=== PATIENT | male | born 1940 | race Caucasian/White ===

== ENCOUNTER → 2016-08-19 | Outpatient (CLI) | payer MEDICARE, OTHER | END | disposition home or self-care (01) | LOC: PCVCCLINIC 14:04 | PROVIDERS: ATTEND Internal Medicine Cardiovascular Disease | DX: I42.8 Other cardiomyopathies (principal) | CPT/HCPCS: 93284 ==

== ENCOUNTER → 2017-07-15 | Outpatient (CLI) | payer MEDICARE, OTHER | END | disposition home or self-care (01) | LOC: PCVCCLINIC 14:02 | PROVIDERS: ATTEND Internal Medicine Cardiovascular Disease | DX: I42.8 Other cardiomyopathies (principal); I51.7 Cardiomegaly; J44.9 Chronic obstructive pulmonary disease, unspecified; Z95.810 Presence of automatic (implantable) cardiac defibrillator; Z87.891 Personal history of nicotine dependence; Z79.899 Other long term (current) drug therapy; Z79.82 Long term (current) use of aspirin | CPT/HCPCS: 80061; 93005; G0463 ==

== ENCOUNTER → 2018-01-18 | Outpatient (CLI) | payer MEDICARE, OTHER | END | disposition home or self-care (01) | LOC: PCVCCLINIC 13:50 | DX: I10 Essential (primary) hypertension (principal); I42.8 Other cardiomyopathies; Z95.0 Presence of cardiac pacemaker; Z88.0 Allergy status to penicillin; Z88.8 Allergy status to other drugs, medicaments and biological substances; Z79.82 Long term (current) use of aspirin; Z79.899 Other long term (current) drug therapy | CPT/HCPCS: 80061; 93281; G0463 ==

== ENCOUNTER → 2018-04-28 | Outpatient (CLI) | payer MEDICARE, OTHER ==
--- NOTE | 2018-04-28 14:46 | PCVCIMAG ---
APPROVED REPORT Study performed: 04/28/2018 09:33:10 EXAM: Comprehensive 2D, Doppler, and color-flow Echocardiogram Patient Location: Echo lab Room #: 2Status: routine BSA: 2.37 Other Information Study Quality: Excellent Risk Factors: Cardiac Risk Factors: HTN Indications COPD Pacemaker CAD Cardiomyopathy Nonischemic cardiomyopathy,, Defibrilator PM 2D Dimensions IVSd: 8.42 (7-11mm)LVOT Diam: 22.68 (18-24mm) LVDd: 60.37 mm PWd: 10.43 (7-11mm) LVDs: 44.30 (25-40mm) Left Atrium: 42.34 (27-40mm) Aortic Root: 25.68 mm LV Single Plane 4CH: 39.68 % LV Single Plane 2CH: 43.80 % Biplane EF: 41.8 % Volumes Left Atrial Volume (Systole) Single Plane 4CH: 78.03 mLSingle Plane 2CH: 91.38 mL Biplane LA Volume: 91.00 mLLA ESV Index: 38.00 mL/m2 Aortic Valve AoV Peak Ahmet.: 1.32 m/s AO Peak Gr.: 6.95 mmHgLVOT Max P.74 mmHg LVOT Max V: 0.66 m/s BLAIR Vmax: 2.02 cm2 Mitral Valve E/A Ratio: 0.5 MV Decel. Time: 231.11 ms MV E Max Ahmet.: 0.56 m/s MV A Ahmet.: 1.05 m/s IVRT: 138.41 ms TDI E/Lateral E': 11.20E/Medial E': 14.00 Medial E' Ahmet.: 0.04 m/s Lateral E' Ahmet.: 0.05 m/s Pulmonary Valve PV Peak Ahmet.: 1.04 m/sPV Peak Gr.: 4.35 mmHg Pulmonary Vein P Vein S: 0.51 m/sP Vein A: 0.31 m/s P Vein D: 0.32 m/sP Vein A Dur.: 159.2 msec P Vein S/D Ratio: 1.59 Tricuspid Valve TR Peak Ahmet.: 2.53 m/s TR Peak Gr.: 25.53 mmHg TV Vmax: 0.60 m/sPA Pressure: 33.00 mmHg Left Ventricle Left ventricle is moderately dilated. Global mild-moderate hypokinesis. There is normal left ventricular wall thickness. Left ventricular systolic function is moderately decreased. LVEF is 40-45%. Grade I - abnormal relaxation pattern. Right Ventricle The right ventricle is normal size. The right ventricular systolic function is normal. Atria Left atrium is mildly dilated. The right atrium size is normal. Aortic Valve Aortic valve is trileaflet with normal function. No aortic regurgitation is present. There is no aortic valvular stenosis. Mitral Valve The mitral valve is normal in structure. There is no mitral valve regurgitation noted. No evidence of mitral valve stenosis. Tricuspid Valve The tricuspid valve is normal in structure. Mild tricuspid regurgitation with a PA pressure of 33 mmHg. Mild pulmonary hypertension. Pulmonic Valve The pulmonary valve is normal in structure. There is no pulmonic valvular regurgitation. Great Vessels The aortic root is normal in size. The ascending aorta is normal in size. Aortic arch is normal in caliber. IVC is normal in size and collapses >50% with inspiration. Pericardium There is no pericardial effusion. There is no pleural effusion. <Conclusion> Left ventricle is moderately dilated. Left ventricular systolic function is moderately decreased. LVEF is 40-45%. Global mild-moderate hypokinesis. Grade I - abnormal relaxation pattern. Left atrium is mildly dilated. Aortic valve is trileaflet with normal function. There is no mitral valve regurgitation noted. Mild tricuspid regurgitation with a PA pressure of 33 mmHg. Mild pulmonary hypertension. The aortic root is normal in size. There is no pericardial effusion.
== END | disposition home or self-care (01) ==
LOC: PCVCIMAG 15:48
PROVIDERS: ATTEND Internal Medicine Cardiovascular Disease
DX: I10 Essential (primary) hypertension (principal); I42.9 Cardiomyopathy, unspecified; I27.20 Pulmonary hypertension, unspecified; I07.1 Rheumatic tricuspid insufficiency
CPT/HCPCS: 93306

== ENCOUNTER → 2018-12-22 | Outpatient (CLI) | payer MEDICARE, OTHER | END | disposition home or self-care (01) | LOC: PCVCCLINIC 12:00 | PROVIDERS: ATTEND Internal Medicine Cardiovascular Disease | DX: I42.8 Other cardiomyopathies (principal); I10 Essential (primary) hypertension; E78.5 Hyperlipidemia, unspecified; J44.9 Chronic obstructive pulmonary disease, unspecified; G47.33 Obstructive sleep apnea (adult) (pediatric); K21.9 Gastro-esophageal reflux disease without esophagitis; Z95.810 Presence of automatic (implantable) cardiac defibrillator; Z87.891 Personal history of nicotine dependence; Z88.0 Allergy status to penicillin | CPT/HCPCS: 93280; G0463 ==